=== PATIENT | male | born 1995 | race Hispanic/Latino ===

== ENCOUNTER 2017-08-15 08:58 | Emergency (ER) | payer OTHER ==
[2017-08-15] MEDS ORDERED: HYDROCODONE/CHLORPHEN 5 ML/OSYR ONE (09:40)
--- NOTE | 2017-08-15 10:07 | ER ---
Nurse's Notes [facility] Name: Steve Cintron Age: 22 yrs Sex: Male : 1995 Arrival Date: 08/15/2017 Time: 09:00 Bed 20 Private MD: Diagnosis: Other chest pain Presentation: 08/15 09:06 Presenting complaint: Patient states: chest pain that began two weeks ago. Seen at [facility], had blood work, EKG and chest XRAY and was told everything looked fine. Went back a few days later after developing a cough and was told that he was okay and given new prescriptions. Pt c/o increased pain when breathing. Transition of care: patient was not received from another setting of care. Onset of symptoms is unknown. Care prior to arrival: None. 09:06 Method Of Arrival: Ambulatory 09:06 Acuity: JEREMI 3 Historical: - Allergies: 09:09 PENICILLINS; - Home Meds: 09:09 unknown muscle relaxer [Active]; - PMHx: 09:09 None; - PSHx: 09:09 None; - Immunization history:: Adult Immunizations up to date. - Social history:: Smoking status: Patient uses tobacco products, smokes one-half pack cigarettes per day. Screenin:27 Abuse screen: Denies threats or abuse. Nutritional screening: No deficits noted. em Tuberculosis screening: No symptoms or risk factors identified. Fall Risk None identified. Assessment: 09:27 General: Appears in no apparent distress. uncomfortable, Behavior is calm, cooperative, em Reports was seen at [facility] 2 weeks ago, they did chest xray, ekg, and blood work was told every was ok, has follow up with Dr. watson 08/19/17. Pain: Complains of pain in anterior aspect of right upper chest Pain does not radiate. Pain currently is 10 out of 10 on a pain scale. Pain began 2 weeks ago. Neuro: Level of Consciousness is awake, alert, obeys commands, Oriented to person, place, time, situation. Cardiovascular: Denies diaphoresis, nausea, vomiting, Heart tones S1 S2 present Capillary refill < 3 seconds Patient's skin is warm and dry. Respiratory: Airway is patent Respiratory effort is even, unlabored, Respiratory pattern is regular, symmetrical. GI: Abdomen is flat. : No signs and/or symptoms were reported regarding the genitourinary system. EENT: No signs and/or symptoms were reported regarding the EENT system. Derm: Skin is intact, is healthy with good turgor, Skin is pink, warm \T\ dry. Musculoskeletal: Range of motion: intact in all extremities. 09:30 General: The previous assessment is accurate, call light remains within reach. . ss 10:12 Reassessment: Pt left AMA. AMA form signed. Pt verbalizes understanding importance of ss follow up care and risks involved leaving AMA. Vital Signs: 09:09 BP 139 / 76; Pulse 64; Resp 14; Temp 97.6; Pulse Ox 98% on R/A; Weight 90.72 kg; Height ss 5 ft. 10 in. (177.80 cm); Pain 10/10; 09:27 BP 128 / 78; Pulse 78; Resp 18; Pulse Ox 97% on R/A; Pain 10/10; em 09:09 Body Mass Index 28.70 (90.72 kg, 177.80 cm) ED Course: 09:00 Patient arrived in ED. tw3 09:08 Triage completed. ss 09:09 Kirstin Valverde NP is PHCP. rh1 09:09 Luigi Mathew MD is Attending Physician. rh1 09:09 Arm band placed on right wrist. ss 09:27 Patient has correct armband on for positive identification. Bed in low position. Call em light in reach. Side rails up X2. airport engineer on. Pulse ox on. 09:27 No provider procedures requiring assistance completed. Patient did not have IV access em during this emergency room visit. Patient maintains SpO2 saturation greater than 95% on room air. 09:36 Dennis Jean Baptiste LVN is Primary Nurse. em 09:48 X-ray completed. Patient tolerated procedure well. sw 09:49 Chest Pa And Lat (2 Views) XRAY In Process Unspecified. EDMS Administered Medications: 10:21 Not Given (Patient Refused): Tussionex Pennkinetic ER 5 ml PO once em Outcome: 10:28 Patient left the ED. ss 10:30 AMA AMA form signed em 10:30 Condition: good 10:30 Instructed on follow up and referral plans. Signatures: Dispatcher [employer] EDDennis Weldon LVN LVN Daly Hankins, RN RN ss Mina, Gilma sw Abram, Kirstin, APARTMENT RENTAL CLERK APARTMENT RENTAL CLERK 1 Rima Fang 3
--- NOTE | 2017-08-15 10:07 | EDPHYS ---
Physician Documentation [facility] Name: Steve Cintron Age: 22 yrs Sex: Male : 1995 Arrival Date: 08/15/2017 Time: 09:00 Bed 20 Private MD: ED Physician Luigi Mathew HPI: 08/15 09:13 This 22 yrs old Male presents to ER via Ambulatory with complaints of Chest rh1 Pain. 09:13 The patient or guardian reports chest pain that is located primarily in the right rh1 clavicle, anterior aspect of right upper chest and right breast. The pain does not radiate. Associated signs and symptoms: Pertinent positives: cough, shortness of breath, Pertinent negatives: abdominal pain, diaphoresis, dizziness, lower extremity pain, lower extremity swelling, lightheadedness, nausea, palpitations, syncope, vomiting. The chest pain is described as tightness. Duration: The patient or guardian reports a single episode, constant. Modifying factors: The symptoms are alleviated by rest, the symptoms are aggravated by cough, deep breath, movement, palpation of area, twisting torso. Severity of pain: At its worst the pain was moderate in the emergency department the pain is unchanged. The patient has not experienced similar symptoms in the past. The patient has been recently seen by a physician: to [facility] 2 weeks ago, had EKG xray "and everything was ok" -- seen again in [facility] approx. 1 week ago "and they did all that stuff again and it was normal". Pt. reports right sided chest pain, described as "tight" feeling that is worse with movement, breathing, coughing. Reports initially pain was intermittent, for the past 1 week has been constant, with runny nose, congestion, that makes it difficult to breath intermittently. Denies any fever/chills, vomiting, diaphoresis, syncope.. Historical: - Allergies: 09:09 PENICILLINS; ss - Home Meds: : unknown muscle relaxer [Active]; ss - PMHx: 09:09 None; ss - PSHx: 09:09 None; ss - Immunization history:: Adult Immunizations up to date. - Social history:: Smoking status: Patient uses tobacco products, smokes one-half pack cigarettes per day. ROS: 09:13 Constitutional: Negative for fever, chills rh1 09:13 ENT: Positive for rhinorrhea, sinus congestion, Negative for sore throat, difficulty swallowing, difficulty handling secretions, hoarseness. 09:13 Cardiovascular: Positive for chest pain, with cough, with movement, Negative for edema, palpitations. 09:13 Respiratory: Positive for cough, with no reported sputum, shortness of breath, Negative for dyspnea on exertion, hemoptysis, wheezing. 09:13 Abdomen/GI: Negative for abdominal pain, nausea, vomiting, and diarrhea. 09:13 Back: Positive for radiated pain, right shoulder, with increased pain at right anterior chest, Negative for decreased range of motion, pain at rest, pain with movement. 09:13 MS/extremity: Negative for decreased range of motion, pain, paresthesias. 09:13 Skin: Negative for diaphoresis, rash. 09:13 Neuro: Negative for altered mental status, dizziness, headache, numbness, syncope, near syncope, tingling, weakness. Exam: 09:13 Constitutional: This is a well developed, well nourished patient who is awake, alert, rh1 and in no acute distress. Head/Face: Normocephalic, atraumatic. 09:13 Neck: Trachea midline, and no cervical lymphadenopathy. Supple, full range of motion without nuchal rigidity. No Meningismus. 09:13 Cardiovascular: Regular rate and rhythm with a normal S1 and S2. No gallops, murmurs, or rubs. No JVD. No pulse deficits. Respiratory: Lungs have equal breath sounds bilaterally, clear to auscultation. No rales, rhonchi or wheezes noted. No increased work of breathing. Abdomen/GI: Soft, non-tender, with normal bowel sounds. No distension. No guarding or rebound. No evidence of tenderness throughout. Back: No spinal tenderness. No costovertebral tenderness. Full range of motion. 09:13 Skin: Warm, dry with normal turgor. Normal color with no rashes, no lesions, and no evidence of cellulitis. MS/ Extremity: Pulses equal, no cyanosis. Neurovascular intact. Full, normal range of motion. 09:13 ENT: External ear(s): are unremarkable, Ear canal(s): are normal, clear, no cerumen impaction, no erythema, no foreign body, no purulent discharge, no swelling, TM's: are normal, no evidence of bulging, no dullness, no erythema, no fluid levels, no hemotympanum, no rupture, normal bony landmarks, Nose: Nasal mucosa: edematous, erythematous, moist, Turbinates: are swollen bilaterally, nasal drainage, that is minimal, and is seen coming from both nares, that is clear, Mouth: is normal, no lip abnormalities, no mucosal abnormalities, Posterior pharynx: is normal, airway is patent, no erythema, no exudate, no peritonsilar mass, no pooling of secretions, no swelling, normal tonsil apperance, normal sized tonsils, normal uvula appearance, normal uvula size. 09:13 Chest/axilla: Inspection: normal, no abrasion, no assymetry, no deformity, no ecchymosis, no evidence of flail chest, no paradoxical chest wall movement, no rash, Palpation: crepitus, is not appreciated, tenderness, that is moderate, of the right clavicle, anterior aspect of right upper chest and right breast, that totally reproduces the patient's complaints. 09:13 Back: Exam negative for ecchymosis vertebral tenderness. 09:13 Neuro: Orientation: is normal, to person, place \\T\\ time. Mentation: is normal, lucid, able to follow commands, Motor: is normal, moves all fours, strength is 5/5 in all extremities, Sensation: is normal, no obvious gross deficits, numbness, is not appreciated, tingling, is not appreciated, Gait: is steady, at a normal pace, without difficulty. Vital Signs: 09:09 BP 139 / 76; Pulse 64; Resp 14; Temp 97.6; Pulse Ox 98% on R/A; Weight 90.72 kg; Height ss 5 ft. 10 in. (177.80 cm); Pain 10/10; 09:27 BP 128 / 78; Pulse 78; Resp 18; Pulse Ox 97% on R/A; Pain 10/10; em 09:09 Body Mass Index 28.70 (90.72 kg, 177.80 cm) ss MDM: 09:13 Patient medically screened. rh1 10:04 Refusal of service: The patient/guardian displays adequate decision making capability rh1 and despite a detailed discussion of alternatives, benefits, risks, and consequences refuses: all lab tests, all X-rays. ED course: Pt. reports he has things to do at 1100, and does not want to stay for evaluation - discussed with pt. inability to rule out emergent causes of chest pain without further evaluation, pt. and mother at bedside verbalize understanding -- will sign ama form, and discussed to return to ER with any continued pain, worsening symptoms, pt. verbalized understanding. 10:04 Data reviewed: vital signs, nurses notes. Data interpreted: Pulse oximetry: on room air rh1 is 97 %. Interpretation: normal. Counseling: I had a detailed discussion with the patient and/or guardian regarding: the need for outpatient follow up, a family practitioner. 08/15 09:35 Order name: Chest Pa And Lat (2 Views) XRAY rh1 Administered Medications: 10:21 Not Given (Patient Refused): Tussionex Pennkinetic ER 5 ml PO once em Disposition: 13:55 Co-signature as Attending Physician, Luigi Mathew MD I agree with the assessment and kdr plan of care. Disposition: 08/15/17 10:06 Patient has left against medical advice. Impression: Other chest pain. - Patients states they are going to Home. - Condition is Undetermined. - Discharge Instructions: Nonspecific Chest Pain. Follow up: Private Physician; When: 1 - 2 days; Reason: Recheck today's complaints, Continuance of care, Re-evaluation by your physician. Follow up: Emergency Department; When: As needed; Reason: Fever > 102 F, If symptoms return, Trouble breathing, Worsening of condition. - Problem is new. - Symptoms are unchanged. Signatures: Dispatcher [employer] Luigi Winters MD MD kdr Smirch, Shelby, RN RN Kirstin Brewer NP DRUM REEL CUTTER rh1 Dennis Jean Baptiste CHIEF WARDEN em Corrections: (The following items were deleted from the chart) 10: 09:35 EKG - Nurse/Tech ordered. rh1 em 10: 09:35 IV Saline Lock ordered. rh1 em
--- NOTE | 2017-08-15 10:29 | RAD REPORT ---
EXAM DESCRIPTION: RAD - Chest Pa And Lat (2 Views) - 08/15/2017 9:50 am CLINICAL HISTORY: Persistent chest pain COMPARISON: July 2013 TECHNIQUE: PA and lateral views of the chest were obtained. FINDINGS: The lungs are clear of failure, infiltrate or mass. No mediastinal or hilar abnormality se en. Trachea is midline. Lung markings are similar to comparison. Heart size is normal and central v asculature is within normal limits. No pleural effusion or pneumothorax seen. No acute bony finding noted. No aortic abnormality. IMPRESSION: No acute cardiopulmonary process. No significant change from comparison.
[2017-08-15 10:33] VITALS: TEMP 97.6
[2017-08-15 10:34] VITALS: BP 128/78; O2SAT 97
== END 2017-08-15 10:28 | disposition left against medical advice (07) ==
LOC: ER 08:58
DX: R07.89 Other chest pain (principal); F17.210 Nicotine dependence, cigarettes, uncomplicated; Z88.0 Allergy status to penicillin
CPT/HCPCS: 71046; 99284

== ENCOUNTER 2020-09-28 15:05 | Emergency (ER) | payer SELFPAY ==
--- OUTSIDE RECORDS SUMMARY | 2020-09-28 15:09 | XMS REPORT | Continuity of Care Document ---
:1995 Author Organization [facility] t Address [address] [place] [address] Care Team Providers Name Role Phone Unavailable Unavailable Unavailable Payers Payer Name Policy Type Policy Number Effective Date Expiration Date S ource Problems This patient has no known problems. Allergies, Adverse Reactions, Alerts Allergy Allergy Status Severity Reaction(s) Onset Inactive Treating Comm ents Source Name Type Date Date Clinician No Known DA Active U 0 [facility] Allergie 05-19 [place] s 00:00: d 00 [facility] Penicill DA Active MO 0 [facility] ins 05-19 Clear 00:00: Duarte 00 [facility] Medications This patient has no known medications. Procedures This patient has no known procedures. Results Test Description Test Time Test Comments Results Result [facility] e Comments - CT ABD PELVIS 2018-05-19 FAX: W/O CONT 16:49:00 Dilia Becerril MD [phone] Crane: EM St: REG Name: CELSO COBOS [facility] : 1995 Age/S: 23/M [address] [facility] Unit: [id number] Loc: E.DG [place], [place]: [place] [id number] Acct: [id number] Dis Date: Status: REG ER PHONE #: [phone] Exam Date: 05/19/2018 1637 FAX #: [phone] Reason: MODERATE BILAT HYDRONEPHROSIS ON U/S EXAMS: CPT CODE: [id number] CT ABD PELVIS W/O CONT 95270 CT ABDOMEN PELVIS WITHOUT CONTRAST HISTORY: MODERATE BILAT HYDRONEPHROSIS ON U/S COMPARISON: None. TECHNIQUE: Axial images of the abdomen and pelvis were obtained without intravenous or oral contrast. Coronal and sagittal reformats were provided. One or more of the following dose reduction techniques were used: Automated exposure control, adjustment of the mA and/or kV according to patient size, and/or utilization of iterative reconstruction technique. FINDINGS: Lower thorax: Unremarkable. Hepatobiliary: Unremarkable. No biliary ductal dilatation. Gallbladder: The gallbladder is contracted. Spleen: Unremarkable except for a few punctate calcified granulomas. Pancreas: Unremarkable. Adrenals: Unremarkable. Kidneys/ureters: Bilateral renal pelviectasis is noted. No renal or ureteral stone is identified. Bowel: The small bowel loops are nondilated. The appendix is normal. Pelvic organs/bladder: There is mild thickening of the urinary bladder wall. This is accentuated by underdistention. The prostate gland is normal in size. Vessels: The abdominal aorta is normal in caliber. Lymph nodes: No lymphadenopathy. Peritoneum/Retroperit oneum: No free air or free fluid is seen. Bones/soft tissues: No aggressive osseous lesion is identified. PAGE 1 Signed Report (CONTINUED) FAX: Dilia Becerril MD [phone] Crane: St: REG Name: COBOSCELSO [facility] : 1995 Age/S: 23/M [address] [facility] Unit: [id number] Loc: E.ERS [place], [place]: [place] [address] Acct: [id number] Dis Date: Status: REG ER PHONE #: [phone] Exam Date: 05/19/2018 1637 FAX #: [phone] Reason: MODERATE BILAT HYDRONEPHROSIS ON U/S EXAMS: CPT CODE: [id number] CT ABD PELVIS W/O CONT 03090 <Continued> IMPRESSION: 1. Mild renal pelviectasis. 2. The urinary bladder wall is mildly thickened however this is accentuated by underdistention. LOCATION: R16 at 7679 Reported and signed by: Stephan Lee M.D. CC: Dilia Becerril MD Technologist: NACHO Landryrd Dt/Tm: 05/19/2018 (9363) [email or web address] Orig Print D/T: S: 05/19/2018 (0552 PAGE 2 Signed Report - US ABDOMEN LTD 2018-05-19 FAX: 16:09:00 Dilia Becerril MD [phone] Crane: St: REG Name: CELSO COBOS [facility] : 1995 Age/S: 23/M [address] [facility] Unit #: [id number] Loc: E.DG [place], [place] [address] Acct: [id number] Dis Date: Status: REG ER PHONE #: [phone] Exam Date: 05/19/2018 1604 FAX #: [phone] Reason: ELEVATED LFT'S EXAMS: CPT CODE: [id number] US ABDOMEN LTD 54823 REASON FOR EXAM: Elevated liver function tests. Abdominal sonogram, limited. B-mode/Goldberg scale imaging with color Doppler perfusion imaging was performed. The aorta has normal diameter. IVC intact with normal spectral analysis waveform on Doppler. The pancreas appears to be limited due to gas shadowing. Coarsened echogenicity pattern in the liver likely fatty liver changes. Normal size at CM. No focal lesions are seen nor cysts. Antegrade portal vein flow seen on color Doppler. Common bile duct 3.6 mm, normal. The gallbladder is severely contracted but no shadowing stones are seen nor adjacent fluid. Negative Beckham's sign. Right kidney well-perfused, 11.7 cm in length. Extrarenal pelvis likely. No caliectasis centrally. The left kidney is 12.2 cm in length also with central fluid more involving the calyces. Perfusion intact. Brief imaging of the bladder shows smooth hebert and normally filled structure. IMPRESSION: Central fluid and caliectasis in the left kidney suggests hydronephrosis. Borderline central fluid in the right kidney versus extrarenal pelvis. Correlate for renal function. Bladder intact. Contracted, thickened gallbladder without gallstones. No ascites found. Fatty liver changes. Location: U19 PAGE 1 Signed Report (CONTINUED) FAX: Dilia Becerril MD [phone] Crane: St: REG Name: CELSO COBOS TYSON [facility] : 1995 Age/S: 23/M [address] [facility] Unit #: [id number] Loc: E.[place], [place] [id number] Acct: [id number] Dis Date: Status: REG ER PHONE #: [phone] Exam Date: 05/19/2018 1604 FAX #: [phone] Reason: ELEVATED LFT'S EXAMS: CPT CODE: [id number] [facility] [address] <Continued> at 1609 Reported and signed by: Felix Isaac M.D. CC: Dilia Becerril MD Technologist: SUSIE OLIVERA [facility] Date/Time/By: 05/19/2018 (3377) : By: [facility] PAGE 2 Signed Report FAX: Dilia Becerril MD [phone] Crane: St: REG Name: CELSO COBOS [facility] : 1995 Age/S: 23/M [address] [facility] Unit #: [id number] Loc: [place], [place]: [place] [address] Acct: [id number] Dis Date: Status: REG ER PHONE #: [phone] Exam Date: 05/19/2018 1604 FAX #: [phone] Reason: ELEVATED LFT'S EXAMS: CPT CODE: [id number] US ABDOMEN LTD 13853 <Continued> Orig Print D/T: S: 05/19/2018 (1312) PAGE 3 Signed Report URINALYSIS COMPLETE 2018-05-19 15:29:00 Test Item Value Reference Range Interpretation Comme nts UA COLOR (test code = COLU) YELLOW UA APPEARANCE (test code = APPU) CLEAR UA GLUCOSE DIPSTICK (test code = DGLUU) NORMAL mg/dl NORMAL UA BILIRUBIN DIPSTICK (test code = BILU) NEGATIVE mg/dL NEGATIVE UA KETONE DIPSTICK (test code = KETU) NEGATIVE mg/dl NEGATIVE UA SPECIFIC GRAVITY (test code = SGU) 1.020 1.000-1.030 UA BLOOD DIPSTICK (test code = FANNY) 25 Marvel/micL Marvel/micL NEGATIVE A UA PH DIPSTICK (test code = KATY) 6.0 5.0-9.0 UA PROTEIN DIPSTICK (test code = PROU) 30 mg/dl NEGATIVE UA UROBILINIOGEN DIPSTICK (test code = URO) NORMAL mg/dl NORMAL UA NITRITE DIPSTICK (test code = PRABHAKAR) NEGATIVE NEGATIVE UA LEUKOCYTE ESTERASE DIPSTICK (test code = NEGATIVE Jaime/micL NEGAT DELFINO LEUU) UA WBC (test code = WBCU) 0-2 WBC/HPF NONE UA RBC (test code = RBCU) 1-3 RBC/HPF 0-3 UA EPITHELIAL CELLS (test code = EPIU) 0-3 EPI/HPF 0-3 UA BACTERIA (test code = BACU) TRACE NONE Specimen comments: Clean CatchURINALYSIS [id number] 15:28:00 Test Item Value Reference Range Interpretation Comments UA COLOR (test code = COLU) UA APPEARANCE (test code = APPU) UA GLUCOSE DIPSTICK (test NORMAL mg/dl NORMAL code = DGLUU) UA BILIRUBIN DIPSTICK NEGATIVE mg/dL NEGATIVE (test code = BILU) UA KETONE DIPSTICK (test NEGATIVE mg/dl NEGATIVE code = KETU) UA SPECIFIC GRAVITY (test 1.020 1.000-1.030 code = SGU) UA BLOOD DIPSTICK (test 25 Marvel/micL Marvel/micL NEGATIVE A code = FANNY) UA PH DIPSTICK (test code 6.0 5.0-9.0 = KATY) UA PROTEIN DIPSTICK (test 30 mg/dl NEGATIVE code = PROU) UA UROBILINIOGEN DIPSTICK NORMAL mg/dl NORMAL (test code = URO) UA NITRITE DIPSTICK (test NEGATIVE NEGATIVE code = PRABHAKAR) UA LEUKOCYTE ESTERASE NEGATIVE Jaime/micL NEGATIVE DIPSTICK (test code = LEUU) UA WBC (test code = WBCU) WBC/HPF NONE UA RBC (test code = RBCU) RBC/HPF 0-3 UA EPITHELIAL CELLS (test EPI/HPF 0-3 code = EPIU) UA BACTERIA (test code = NONE BACU) Specimen comments: Clean CatchBASIC METABOLIC [id number] 15:23:00 Test Item Value Reference Range Interpretation Comments SODIUM (test code = NA) 140 mmol/l 134.0-147.0 N POTASSIUM (test code = K) 4.0 mmol/L 3.6-5.2 N CHLORIDE (test code = CL) 102 mmol/l 98.0-107.0 N CARBON DIOXIDE (test code = CO2) 27.5 mmol/l 21.0-33.0 N ANION GAP (test code = GAP) 14.5 0-20 N GLUCOSE (test code = GLU) 120 mg/dl 70.0-110.0 H BLOOD UREA NITROGEN (test code = 13 mg/dl 7.0-18.0 N BUN) CREATININE (test code = CREAT) 0.88 mg/dL 0.60-1.30 N GFR NON BLACK (test code = 113 mL/min 110-120 N GFRNONBLACK) GFR BLACK (test code = GFRBLACK) 137 mL/min 133-145 N CALCIUM (test code = CA) 9.1 mg/dl 8.0-10.5 N HEPATIC FUNCTION PANEL [id number] 15:23:00 Test Item Value Reference Range Interpretation Comments TOTAL PROTEIN (test code = PROT) 8.1 GM/DL 6.0-8.1 N ALBUMIN (test code = ALB) 4.0 gm/dL 3.2-4.7 N BILIRUBIN TOTAL (test code = 0.4 mg/dl 0.0-1.0 N BILT) BILIRUBIN DIRECT (test code = 0.1 mg/dl 0.0-0.3 N BILD) SGOT/AST (test code = AST) 515 Units/L 15.0-37.0 HH SGPT/ALT (test code = ALT) 266 Units/L 12.0-78.0 H ALKALINE PHOSPHATASE TOTAL (test 79 Units/L 50.0-136.0 N code = ALKP) [id number] 15:23:00 Test Item Value Reference Range Interpretation Comments LIPASE (test code = LIP) 307 Units/L 65.0-230.0 H BASIC METABOLIC [id number] 15:17:00 Test Item Value Reference Range Interpretation Comments SODIUM (test code = NA) 140 mmol/l 134.0-147.0 N POTASSIUM (test code = K) 4.0 mmol/L 3.6-5.2 N CHLORIDE (test code = CL) 102 mmol/l 98.0-107.0 N CARBON DIOXIDE (test code = CO2) 27.5 mmol/l 21.0-33.0 N ANION GAP (test code = GAP) 14.5 0-20 N GLUCOSE (test code = GLU) mg/dl 70.0-110.0 BLOOD UREA NITROGEN (test code = mg/dl 7.0-18.0 BUN) CREATININE (test code = CREAT) mg/dL 0.60-1.30 GFR NON BLACK (test code = mL/min 110-120 GFRNONBLACK) GFR BLACK (test code = GFRBLACK) mL/min 133-145 CALCIUM (test code = CA) mg/dl 8.0-10.5 HEPATIC FUNCTION PANEL [id number] 15:17:00 Test Item Value Reference Range Interpretation Comments TOTAL PROTEIN (test code = PROT) gm/dL 6.4-8.2 ALBUMIN (test code = ALB) gm/dl 3.2-4.7 BILIRUBIN TOTAL (test code = BILT) mg/dl 0.0-1.0 BILIRUBIN DIRECT (test code = BILD) mg/dl 0.0-0.3 SGOT/AST (test code = AST) Units/L 15.0-37.0 SGPT/ALT (test code = ALT) Units/L 12.0-78.0 ALKALINE PHOSPHATASE TOTAL (test Units/L 50.0-136.0 code = ALKP) [id number] 15:17:00 Test Item Value Reference Range Interpretation Comments LIPASE (test code = LIP) Units/L 65.0-230.0 CBC W/O [id number] 15:09:00 Test Item Value Reference Range Interpretation Comments WHITE BLOOD CELL (test code = WBC) 10.4 K/mm3 4.5-11.0 N RED BLOOD CELL (test code = RBC) 4.86 M/mm3 4.40-5.90 N HEMOGLOBIN (test code = HGB) 14.8 gm/dL 13.0-17.0 N HEMATOCRIT (test code = HCT) 43.5 % 36.0-48.0 N MEAN CELL VOLUME (test code = MCV) 89.5 UM3 80.0-94.0 N MEAN CELL HGB (test code = MCH) 30.5 UUG 25.5-32.5 N MEAN CELL HGB CONCETRATION (test 34.0 gm/dL 29.0-35.5 N code = MCHC) RED CELL DISTRIBUTION WIDTH (test 12.5 % 11.5-15.0 N code = RDW) PLATELET COUNT (test code = PLT) 363 K/mm3 150-400 N MEAN PLATELET VOLUME (test code = 8.3 fl 7.4-10.4 N MPV) - XR CHEST 1 [id number] 14:56:00 FAX: Dilia Becerril MD [phone] Crane: St: REG Name: CELSO COBOS [facility] : 1995 Age/S: 23/M [address] [facility] [employer] Unit#: [id number] Loc: [place], [place]: [place] [id number] Acct: [id number] Dis Date: Status: REG ER PHONE #: [phone] Exam Date: 05/19/2018 1435 FAX #: [phone] Reason: Abdominal Pain EXAMS: CPT CODE: [id number] XR CHEST 1 V 06247 REASON FOR EXAM: Flu like symptoms. COMPARISON: None. Chest, portable single frontal view. The lungs are well-inflated and clear. Heart size is normal. No effusion or pneumothorax can be seen. Osseous structures appear to be intact. IMPRESSION: No acute cardiopulmonary disease. Location: [facility] at 1456 Reported and signed by: Felix Isaac M.D. CC: Dilia Becerril MD Technologist: GLADYS MOTLEY Trnscrd Date/Time/By: 05/19/2018 (8783) : By: [facility] PAGE 1 Signed Report FAX: Dilia Becerril MD [phone] Crane: St: REG Name: CELSO COBOS [facility] : 1995 Age/S: 23/M [address] [facility] Unit #: [id number] Loc: [place], [place]: [place] [address] Acct: [id number] Dis Date: Status: REGER PHONE #: [phone] Exam Date: 05/19/2018 1435 FAX #: [phone] Reason: Abdominal Pain EXAMS: CPT CODE: [id number] XR CHEST 1 V 74748 <Continued> Orig Print D/T: S: 05/19/2018 (1476) PAGE 2 Signed Report
--- NOTE | 2020-09-28 16:26 | ER ---
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 ca1 Coronavirus screen: Client denies travel out of the [place] in the last 14 days. At this time, the client does not indicate any symptoms associated with coronavirus-19. Ebola Screen: Patient negative for fever greater than or equal to 101.5 degrees Fahrenheit, and additional compatible Ebola Virus Disease symptoms Patient denies exposure to infectious person. Patient denies travel to an Ebola-affected area in the 21 days before illness onset. No symptoms or risks identified at this time. Initial Sepsis Screen: Does the patient meet any 2 criteria? No. Patient's initial sepsis screen is negative. Does the patient have a suspected source of infection? No. Patient's initial sepsis screen is negative. Risk Assessment: Do you want to hurt yourself or someone else? Patient reports no desire to harm self or others. Onset of symptoms was September 28, 2020. 15:23 Method Of Arrival: Wheelchair ca1 15:23 Acuity: JEREMI 4 ca1 Historical: - Allergies: 15:25 PENICILLINS; ca1 - Home Meds: 15:25 None [Active]; ca1 - PMHx: 15:25 None; ca1 - PSHx: 15:25 None; ca1 - Immunization history:: Client reports having NOT received the Covid vaccine. Flu vaccine is not up to date. - Social history:: Smoking status: Patient reports the use of cigarette tobacco products, smokes one-half pack cigarettes per day. Screenin:47 Abuse screen: Denies threats or abuse. Nutritional screening: No deficits noted. ll1 Tuberculosis screening: No symptoms or risk factors identified. Fall Risk Fall in past 12 months (25 points). Ambulatory Aid- Crutches/Cane/Walker (15 pts). Gait- Impaired (20 pts.). Total De La Cruz Fall Scale indicates High Risk Score (45 or more points). Fall prevention measures have been instituted. Side Rails Up X 2 Placed Close to Nursing Station Frequent Obs/Assessments Occuring Family Present and informed to notify staff if the need to leave the bedside As available patient and family educated on Fall Prevention Program and Strategies. Assessment: 15:46 General: Appears uncomfortable, Behavior is calm, cooperative, appropriate for age. ll1 Pain:. 15:46 Pain: Complains of pain in R ankle Quality of pain is described as aching, Aggravated ll1 by increased activity. Musculoskeletal: Circulation, motion, and sensation intact. Capillary refill < 3 seconds, Range of motion: intact in all extremities, Tenderness present in R ankle Reports pain in R ankle. Injury Description: strain/sprain. 16:55 Musculoskeletal: Circulation, motion, and sensation intact. Capillary refill < 3 ll1 seconds, Range of motion: intact in all extremities. Vital Signs: 15:23 BP 123 / 74; Pulse 78; Resp 16 S; Temp 98.6(TE); Pulse Ox 99% on R/A; Weight 90.72 kg ca1 (R); Height 5 ft. 10 in. (177.80 cm) (R); Pain 9/10; 15:23 Body Mass Index 28.70 (90.72 kg, 177.80 cm) ca1 ED Course: 15:08 Patient arrived in ED. ds1 15:24 Triage completed. ca1 15:25 Arm band placed on right wrist. ca1 15:44 Patient placed in an exam room, on a stretcher. ll1 15:48 Patient has correct armband on for positive identification. Bed in low position. Call ll1 light in reach. Side rails up X 1. Cardiac monitoring not applicable on this patient. 15:49 John Salinas PA is PHCP. jr8 15:49 Michael Paul MD is Attending Physician. jr8 16:08 Ankle Right 3 View XRAY In Process Unspecified. EDMS 16:22 Isaac wrap to right ankle. Crutch training done. dh4 16:26 Naren Polk MD is Referral Physician. jr8 16:42 Sami Deras, JESSICA is Primary Nurse. ll1 16:55 No provider procedures requiring assistance completed. Patient did not have IV access ll1 during this emergency room visit. Administered Medications: 16:50 Drug: [place] (HYDROcodone-acetaminophen) 10 mg-325 mg 1 tabs Route: PO; ll1 16:55 Follow up: Response: No adverse reaction ll1 16:50 Drug: TORadol (ketorolac) 30 mg Route: IM; Site: left deltoid; ll1 16:55 Follow up: Response: No adverse reaction ll1 Outcome: 16:26 Discharge ordered by . edgardo 16:55 Discharged to home via wheelchair. ll1 16:55 Condition: stable 16:55 Discharge instructions given to patient, Instructed on discharge instructions, follow up and referral plans. medication usage, crutch walking, Demonstrated understanding of instructions, follow-up care, medications, crutch walking, Prescriptions given X 1. 16:56 Patient left the ED. ll1 Signatures: Dispatcher [employer] EDWA MartinoLakesha ernandez ds1 John Salinas PA PA jr8 Tania Duron RN RN [facility] Raul Saenz [facility] Sami Deras RN RN ll1 Corrections: (The following items were deleted from the chart) 15:47 15:46 General: Appears uncomfortable, Behavior is calm, cooperative, appropriate for ll1 age, ll1
--- NOTE | 2020-09-28 16:26 | EDPHYS ---
Physician Documentation [facility] Name: Steve Cintron Age: 25 yrs Sex: Male : 1995 Arrival Date: 09/28/2020 Time: 15:08 Bed 12 Private MD: ED Physician Michael Paul HPI: 09/28 16:23 This 25 yrs old Male presents to ER via Wheelchair with complaints of Ankle jr8 Injury. 16:23 The patient presents with decreased range of motion, pain, that is acute, swelling, jr8 tenderness. The complaints affect the right ankle. Onset: The symptoms/episode began/occurred acutely, today. Context: The problem was sustained outdoors, resulted from the patient falling, slipped of back of truck and twisted right ankle. Associated signs and symptoms: The patient has no apparent associated signs or symptoms. Modifying factors: The symptoms are alleviated by nothing, the symptoms are aggravated by movement. Severity of symptoms: At their worst the symptoms were moderate, in the emergency department the symptoms are unchanged. The patient has not experienced similar symptoms in the past. The patient has not recently seen a physician. Historical: - Allergies: 15:25 PENICILLINS; ca1 - Home Meds: 15:25 None [Active]; ca1 - PMHx: 15:25 None; ca1 - PSHx: 15:25 None; ca1 - Immunization history:: Client reports having NOT received the Covid vaccine. Flu vaccine is not up to date. - Social history:: Smoking status: Patient reports the use of cigarette tobacco products, smokes one-half pack cigarettes per day. ROS: 16:23 Eyes: Negative for injury, pain, redness, and discharge, ENT: Negative for injury, jr8 pain, and discharge, Neck: Negative for injury, pain, and swelling, Cardiovascular: Negative for chest pain, palpitations, and edema, Respiratory: Negative for shortness of breath, cough, wheezing, and pleuritic chest pain, Abdomen/GI: Negative for abdominal pain, nausea, vomiting, diarrhea, and constipation, Back: Negative for injury and pain, Skin: Negative for injury, rash, and discoloration, Neuro: Negative for headache, weakness, numbness, tingling, and seizure. 16:23 MS/extremity: Positive for decreased range of motion, pain, swelling, tenderness, of the right lateral and dorsal ankle. Exam: 16:23 Constitutional: This is a well developed, well nourished patient who is awake, alert, jr8 and in no acute distress. Vital Signs: 15:23 BP 123 / 74; Pulse 78; Resp 16 S; Temp 98.6(TE); Pulse Ox 99% on R/A; Weight 90.72 kg ca1 (R); Height 5 ft. 10 in. (177.80 cm) (R); Pain 9/10; 15:23 Body Mass Index 28.70 (90.72 kg, 177.80 cm) ca1 MDM: 15:49 Patient medically screened. jr8 16:13 Data reviewed: vital signs, nurses notes, radiologic studies, plain films. Data jr8 interpreted: Pulse oximetry: on room air is 99 %. Interpretation: normal. Counseling: I had a detailed discussion with the patient and/or guardian regarding: the historical points, exam findings, and any diagnostic results supporting the discharge/admit diagnosis, radiology results, the need for outpatient follow up, a orthopedic surgeon, to return to the emergency department if symptoms worsen or persist or if there are any questions or concerns that arise at home. 09/28 15:25 Order name: Ankle Right 3 View XRAY; Complete Time: 16:30 ca1 09/28 16:13 Order name: Isaac wrap-joint; Complete Time: 16:23 jr8 09/28 16:13 Order name: Crutches; Complete Time: 16:23 jr8 Administered Medications: 16:50 Drug: [place] (HYDROcodone-acetaminophen) 10 mg-325 mg 1 tabs Route: PO; ll1 16:55 Follow up: Response: No adverse reaction ll1 16:50 Drug: TORadol (ketorolac) 30 mg Route: IM; Site: left deltoid; ll1 16:55 Follow up: Response: No adverse reaction ll1 Disposition: 09/28/20 16:26 Discharged to Home. Impression: Sprain of ankle. - Condition is Stable. - Discharge Instructions: Ankle Sprain. - Prescriptions for Ibuprofen 800 mg Oral Tablet - take 1 tablet by ORAL route every 12 hours As needed take with food; 20 tablet. - Medication Reconciliation Form, Thank You Letter, Antibiotic Education, Prescription Opioid Use form. - Follow up: Naren Polk MD; When: 1 week; Reason: If symptoms return, Recheck today's complaints, Continuance of care, Re-evaluation by your physician. - Problem is new. - Symptoms have improved. Addendum: 09/30/2020 07:15 Co-signature as Attending Physician, Micheal Paul MD I agree with the assessment and c cornelius plan of care. Signatures: Dispatcher [employer] EDMichael Gonzalez MD MD cha Roszak, Josh, PA PA jr8 Tania Duron RN RN [facility] Sami Deras RN RN ll1 Corrections: (The following items were deleted from the chart) 09/28 16:56 16:26 09/28/2020 16:26 Discharged to Home. Impression: Sprain of ankle. Condition is ll1 Stable. Forms are Medication Reconciliation Form, Thank You Letter, Antibiotic Education, Prescription Opioid Use. Follow up: Naren Polk; When: 1 week; Reason: If symptoms return, Recheck today's complaints, Continuance of care, Re-evaluation by your physician. Problem is new. Symptoms have improved. jr8
--- NOTE | 2020-09-28 16:29 | RAD REPORT ---
EXAM DESCRIPTION: RAD - Ankle Right 3 View - 09/28/2020 4:08 pm CLINICAL HISTORY: Right ankle pain FINDINGS: No fracture or dislocation is seen. Soft tissue swelling . A spur extends off the distal fibular diaphysis
[2020-09-28 17:02] VITALS: BP 123/74; TEMP 98.6; O2SAT 99
[2020-09-28] MEDS ORDERED: HYDROCODONE/APAP 10/325 TAB ONE (17:04)
[2020-09-28] MEDS ORDERED: KETOROLAC 30 MG/ML INJ ONE (17:05)
== END 2020-09-28 16:56 | disposition home or self-care (01) ==
LOC: ER 15:05
DX: S93.401A Sprain of unspecified ligament of right ankle, initial encounter (principal); F17.210 Nicotine dependence, cigarettes, uncomplicated; V58.4XXA Person boarding or alighting a pick-up truck or van injured in noncollision transport accident, initial encounter
CPT/HCPCS: 96372; 99284

== ENCOUNTER 2024-03-08 14:09 | Emergency (ER) | payer SELFPAY ==
--- OUTSIDE RECORDS SUMMARY | 2024-03-08 14:13 | XMS REPORT | Continuity of Care Document ---
Author Name Unknown Address [address] [facility] [address] [place] [address] [facility] Address [address] [facility] [address] [place] [address] Care Team Providers Care Logistics Loss Prevention Manager Name Role Phone DAVE ELAM JR Primary Care Physician Silvia post Doctor Unassigned, [place] Attending Clinician U ZAKIYA Mathews Attending Clinician Unavailab Zakiya Fonseca MD Attending Clinician [phone] ZAKIYA FLORES Admitting Clinician Unavailab marrero Payers Payer Name Policy Type Policy Number Effective Date Expirati on Date Source Allergies, Adverse Reactions, Alerts Allergy Name Allergy Type Status Severity Reaction(s) Onset Date Inactive Date Treating Clinician Comments Source Penicill ins DA Active [place] 05-19 00:00: 00 [facility] No Known Allergie s DA Active U 05-19 00:00: 00 [facility] PENICILL IN DRUG INGREDI Active Med Rash 2017- 605 00:00: 00 [facility] ity [facility] Penicill in Propensi ty to adverse reaction s Active Rash 10-05 00:00: 00 [facility] Social History Social Habit Start Date Stop Date Quantity Comments Source History of tobacco use 2013-10-05 00:00:00 Cigarette Smoker [facility] Alcohol intake 2022-09-19 00:00:00 2022-09-19 00:00:00 Current drinker of alcohol (finding) [facility] Cigarettes smoked current (pack per day) - Reported 2017-10-05 00:00:00 2017-10-05 00:00:00 [facility] Tobacco use and exposure 2017-10-05 00:00:00 2017-10-05 00:00:00 User of smokeless tobacco [facility] Alcohol Comment 2017-10-05 00:00:00 2017-10-05 00:00:00 Occasionally [facility] Sex Assigned At 1995 00:00:00 1995 00:00:00 [facility] Smoking Status Start Date Stop Date Source Smokes tobacco daily 2017-10-05 00:00:00 [facility] Medications Ordered Medication Name Filled Medication Name Start Date Stop Date Current Medication? Ordering Clinician Indication Dosage Frequency Signature (SIG) Comments Components Source iopamidol (ISOVUE 370-500 mL) injection 1 mL 09-19 14:30: 00 09-19 14:30 :00 No [id number] 1mL 1 mL, Intravenou s, ONCE, 1 dose, On 09/19/22 at 0930, Routine [facility] traMADOL 50 mg tablet 11-18 00:00: 00 Yes 50mg Take 1 tablet by mouth every 8 (eight) hours as needed for Pain (scale 7-10). [facility] diclofenac 3 % gel 10-18 00:00: 00 Yes Apply to area(s) 2 (two) times daily. [facility] cyclobenzap rine 10 mg tablet 09-15 00:00: [address] [facility] Vital Signs Vital Name Observation Time Observation Value Comments S ource Systolic blood pressure 2022-09-19 14:00:00 139 mm[Hg] [facility] Diastolic blood pressure 2022-09-19 14:00:00 111 mm[Hg] [facility] Heart rate 2022-09-19 14:00:00 69 /min [facility] Oxygen saturation in Arterial blood by Pulse oximetry 2022-09-19 14:00:00 100 /min [facility] Procedures Procedure Date / Time Performed Performing Clinician Source AUTHORIZATION FOR RELEASE OF PHI 2022-09-23 05:01:00 Doctor Unassigned, [place] [facility] CT TRAUMA HEAD WO CONTRAST 2022-09-19 13:45:58 Zakiya Flores [facility] CT TRAUMA THORAX W CONTRAST 2022-09-19 13:41:13 Zakiya Flores [facility] CT TRAUMA ABDOMEN PELVIS W CONTRAST 2022-09-19 13:37:42 Zakiya Flores [facility] Encounters Start Date/Time End Date/Time Encounter Type Admission Type Attending [facility] Care Facility Care Department Encounter ID Source 2022-09-23 00:00:00 2022-09-23 00:00:00 Orders Only Doctor Unassigned, [place] [facility] [id number] [facility] 2022-09-19 06:58:00 2022-09-19 10:43:00 Emergency X [facility] ERT [id number] [facility] 2022-09-19 06:58:00 2022-09-19 10:43:00 Emergency Zakiya Flores [facility] [id number] [facility] Results Test Description Test Time Test Comments Results Resul t Comments Source - CT ABD PELVIS W/O CONT 2018-05-19 16:49:00 FAX: Dilia Becerril MD [phone] [place]: St: REG Name: CELSO COBOS [facility] : 1995 Age/S: 23/M [address] [facility] [address] Unit: [id number] Loc: [place], [place]: [place] [id number] Acct: [id number] Dis Date: Status: REG ER PHONE #: [phone] Exam Date: 05/19/2018 1637 FAX #: [phone] Reason: MODERATE BILAT HYDRONEPHROSIS ON U/S EXAMS: CPT CODE: [id number] CT ABD PELVIS W/O CONT [address] CT ABDOMEN PELVIS WITHOUT CONTRAST HISTORY: MODERATE [...] Signed Report (CONTINUED) FAX: Dilia Becerril MD [phone] [place]: St: REG Name: CELSO COBOS [facility] : 1995 Age/S: 23/M [address] Unit: [id number] Loc: [place], [place]: [place] [id number] Acct: [id number] Dis Date: Status: REG ER PHONE #: [phone] Exam Date: 05/19/2018 1637 FAX #: [phone] Reason: MODERATE BILAT HYDRONEPHROSIS ON U/S EXAMS: CPT CODE: [id number] CT ABD PELVIS W/O CONT 27451 (Continued) IMPRESSION: 1. Mild renal pelviectasis. 2. The urinary bladder wall is mildly thickened however this is accentuated by underdistention. LOCATION: R16 at 1649 Reported and signed by: Stephan Lee M.D. CC: Dilia Becerril MD Technologist: NACHO [place] Dt/Tm: 05/19/2018 (1649) [email or web address] Orig Print D/T: S: 05/19/2018 (4612 PAGE 2 Signed Report - ABDOMEN LTD 2018-05-19 16:09:00 FAX: Dilia Becerril MD [phone] [place]: St: REG Name: CELSO COBOS [facility] : 1995 Age/S: 23/M [address] Unit #: [id number] Loc: [place], [place]: [place] [address] Acct: [id number] Dis Date: Status: REG ER PHONE #: [phone] Exam Date: 05/19/2018 1604 FAX #: [phone] Reason: ELEVATED LFT'S EXAMS: CPT CODE: [id number] ABDOMEN LTD 42480 REASON FOR EXAM: Elevated liver function tests. [...] Signed Report (CONTINUED) FAX: Dilia Becerril MD [phone] [place]: St: REG Name: CHANDRIKACELSO MEHTA [facility] : 1995 Age/S: 23/M [address] [facility] [facility] Unit #: [id number] Loc: [place], [place]: [place] [id number] Acct: [id number] Dis Date: Status: REG ER PHONE #: [phone] Exam Date: 05/19/2018 1604 FAX #: [phone] Reason: ELEVATED LFT'S EXAMS: CPT CODE: [id number] US ABDOMEN LTD 76251 (Continued) at 4078 Reported and signed by: Felix Isaac M.D. CC: Dilia Becerril MD Technologist: SUSIE OLIVERA Trnscrd Date/Time/By: 05/19/2018 (1379) : By: [facility] PAGE 2 Signed Report FAX: Dilia Becerril MD [phone] [place]: St: REG Name: CELSO COBOS [facility] : 1995 Age/S: 23/M [address] [facility] Unit #: [id number] Loc: [place], [place]: [place] [address] Acct: [id number] Dis Date: Status: REG ER PHONE #: [phone] Exam Date: 05/19/2018 1604 FAX #: [phone] Reason: ELEVATED LFT'S EXAMS: CPT CODE: [id number] US ABDOMEN LTD 70527 (Continued) Orig Print D/T: S: 05/19/2018 (5094) PAGE 3 Signed Report Specimen comments: Clean CatchURINALYSIS [id number] 15:28:00* Test Item Value Reference Range Interpretation Comme nts UA COLOR (test code = COLU) UA APPEARANCE (test code = APPU) UA GLUCOSE DIPSTICK (test code = DGLUU) [...] UA LEUKOCYTE ESTERASE DIPSTICK (test code = LEUU) NEGATIVE Jaime/micL NEGATIVE UA WBC (test code = WBCU) WBC/HPF NONE UA RBC (test code = RBCU) RBC/HPF 0-3 UA EPITHELIAL CELLS (test code = EPIU) EPI/HPF 0-3 UA BACTERIA (test code = BACU) NONE Specimen comments: Clean CatchBASIC METABOLIC [id number] 15:23:00* Test Item Value Reference Range Interpretation Comme nts SODIUM (test code = NA) 140 mmol/l 134.0-147.0 N POTASSIUM (test code = K) 4.0 mmol/L 3.6-5.2 N CHLORIDE (test code = CL) 102 mmol/l 98.0-107.0 N CARBON DIOXIDE (test code = CO2) 27.5 mmol/l 21.0-33.0 N ANION GAP (test code = GAP) 14.5 0-20 N GLUCOSE (test code = GLU) 120 mg/dl 70.0-110.0 H BLOOD UREA NITROGEN (test co de = BUN) 13 mg/dl 7.0-18.0 N CREATININE (test code = CREAT) 0.88 mg/dL 0.60-1.30 N GFR NON BLACK (test code = GFRNONBLACK) 113 mL/min 110-120 N GFR BLACK (test code = GFRBLACK) 137 mL/min 133-145 N CALCIUM (test code = CA) 9.1 mg/dl 8.0-10.5 N HEPATIC FUNCTION PANEL [id number] 15:23:00* Test Item Value Reference Range Interpretation Comme nts TOTAL PROTEIN (test code = PROT) 8.1 GM/DL 6.0-8.1 N ALBUMIN (test code = ALB) 4.0 gm/dL 3.2-4.7 N BILIRUBIN TOTAL (test code = BILT) 0.4 mg/dl 0.0-1.0 N BILIRUBIN DIRECT (test code = BILD) 0.1 mg/dl 0.0-0.3 N SGOT/AST (test code = AST) 515 Units/L 15.0-37.0 HH SGPT/ALT (test code = ALT) 266 Units/L 12.0-78.0 H ALKALINE PHOSPHATASE TOTAL ( test code = ALKP) 79 Units/L 50.0-136.0 N [id number] 15:23:00* Test Item Value Reference Range Interpretation Comme nts LIPASE (test code = LIP) 307 Units/L 65.0-230.0 H BASIC METABOLIC [id number] 15:17:00* Test Item Value Reference Range Interpretation Comme nts SODIUM (test code = NA) 140 mmol/l 134.0-147.0 N POTASSIUM (test code = K) 4.0 mmol/L 3.6-5.2 N CHLORIDE (test code = CL) 102 mmol/l 98.0-107.0 N CARBON DIOXIDE (test code = CO2) 27.5 mmol/l 21.0-33.0 N ANION GAP (test code = GAP) 14.5 0-20 N GLUCOSE (test code = GLU) mg/dl 70.0-110.0 BLOOD UREA NITROGEN (test co de = BUN) mg/dl 7.0-18.0 CREATININE (test code = CREAT) mg/dL 0.60-1.30 GFR NON BLACK (test code = GFRNONBLACK) mL/min 110-120 GFR BLACK (test code = GFRBLACK) mL/min 133-145 CALCIUM (test code = CA) mg/dl 8.0-10.5 HEPATIC FUNCTION PANEL [id number] 15:17:00* Test Item Value Reference Range Interpretation Comme nts TOTAL PROTEIN (test code = PROT) gm/dL 6.4-8.2 ALBUMIN (test code = ALB) gm/dl 3.2-4.7 BILIRUBIN TOTAL (test code = BILT) mg/dl 0.0-1.0 BILIRUBIN DIRECT (test code = BILD) mg/dl 0.0-0.3 SGOT/AST (test code = AST) Units/L 15.0-37.0 SGPT/ALT (test code = ALT) Units/L 12.0-78.0 ALKALINE PHOSPHATASE TOTAL ( test code = ALKP) Units/L 50.0-136.0 [id number] 15:17:00* Test Item Value Reference Range Interpretation Comme nts LIPASE (test code = LIP) Units/L 65.0-230.0 CBC W/O [id number] 15:09:00* Test Item Value Reference Range Interpretation Comme nts WHITE BLOOD CELL (test code = WBC) [...] UUG 25.5-32.5 N MEAN CELL HGB CONCETRATION ( test code = MCHC) 34.0 gm/dL 29.0-35.5 N RED CELL DISTRIBUTION WIDTH (test code = RDW) 12.5 % 11.5-15.0 N PLATELET COUNT (test code = PLT) 363 K/mm3 150-400 N MEAN PLATELET VOLUME (test c ode = MPV) 8.3 fl 7.4-10.4 N - XR CHEST 1 [id number] 14:56:00FAX: Dilia Becerril MD [phone] [place]: [address] St: REG Name: CELSO COBOS [facility] : 1995 Age/S: 23/M [address] [facility] Unit #: [id number] Loc: [place], [place]: [place] [address] Acct: [id number] Dis Date: Status: REG ER PHONE #: [phone] Exam Date: 0 05/19/2018 1435 FAX #: [phone] Reason: Abdominal Pain EXAMS: CPT CODE: [id number] XR CHEST 1 V 28328 REASON FOR EXAM: Flu like symptoms. COMPARISON: None. Chest, portable single frontal view. Thelungs are well-inflated and clear. Heart size is normal. No effusion or pneumothorax can be seen. Osseous structures appear to be intact. IMPRESSION: No acute cardiopulmonary disease. Location: [facility] at 6736 Reported and signed by: Felix Isaac M.D. CC: Dilia Becerril MD Technologist: [facility] Date/Time/By: 05/19/2018 (7979) : By: [facility] PAGE 1 Signed Report FAX: Dilia Becerril MD [phone] [place] : St: REG -- Name: CELSO COBOS [facility] : 1995 Age/S: 23/M [address] Unit #: [id number] Loc: [place], [place]: [place] [address] Acct: [id number] Dis Date: Status: REG ER PHONE #: [phone] Exam Date: 05/19/2018 1435 FAX #: [phone] Reason: Abdominal Pain EXAMS: CPT CODE: [id number] XR CHEST 1 V 06786 (Continued) Orig Print D/T: S: 05/19/2018 (7706) PAGE 2 Signed Report Notes Date/Time Note Provider Source 2018-05-19 14:32:00 [facility] EMERGENCY PROVIDER REPORT REPORT#:[id number] REPORT STATUS: Signed DATE:05/19/18 TIME: 1432 PATIENT: CELSO COBOS UNIT #: [id number] ROOM/BED: AGE: 23 SEX: M PCP PHYS: No Primary or Family Physician SERVICE AUTHOR: Dilia Becerril MD * ALL edits or amendments must be made on the electronic/computer document * TZR-Ezn-Uels Illness General Confirmed Patient Yes Initial Greet Date/Time 05/19/18 1426 PCP PCP in [place] Presentation Chief Complaint Cough, Nasal congestion Hx Obtained From Patient Onset Occurred Days ago Symptom Duration Since onset Progression since Onset Unchanged Severity: Onset Mild Severity: Current Mild Associated with Reports: Rhinorrhea, Vomiting (post-tussive). Denies: Fever. Associated Other Pt denies other symptoms Exacerbated by Nothing Relieved by Nothing Free Text HPI Notes Free Text HPI Notes 23 y/o male presents to the ED c/o flu like symptoms including productive cough with yellow/green phlegm, nasal congestion, rhinorrhea, and sneezing for the past 2 days. Pt reports associated sx of post-tussive emesis. Pt states he is currently residing at [facility] for marijuana abuse and was given Mucinex and Dayquil by staff for sx. Pt reports no relief s/p medications, so he sought help in the ED. Denies fever, diarrhea or any other acute symptoms. Pt reports drug allergy to PCN and states he develops swelling if taken. Portions of this section were scribed by Minerva Osorio on 05/19/18 at 1603 Review of Systems ROS Statements All systems rev neg except as marked. Focused Review of Systems Constitutional Denies: Chills, Fever, Lethargy. Eyes Denies: Eye pain bilat, Redness bilat, Visual loss bilat. Ears/Nose/Throat Reports: Nasal congestion. Denies: Earache bilat, Sore throat. Respiratory Reports: Cough, productive. Denies: Hemoptysis, Shortness of breath, Wheezing. Cardiovascular Denies: Chest pain, Syncope. GI Reports: Vomiting (post-tussive). Denies: Abdominal pain, Bloody/tarry stool, Diarrhea, Hematemesis, Hematochezia, Melena, Nausea. Musculoskeletal Denies: Back pain, Extremity pain. Hematologic Denies: Bleeding, Bruising. Skin Denies: Diaphoresis, Rash. Neurologic Denies: Change LOC, Dizziness, Focal weakness, Headache, Numbness, Slurred speech. Additional Review of Systems Allergy/Immun Reports: Rhinorrhea, Sneezing. Portions of this section were scribed by Minerva Osorio on 05/19/18 at 1436 Past Medical History - Adult Stated Complaint FLS Allergies Coded Allergies: Penicillins (Intermediate, HIVES 05/19/18) Review of Nursing Notes Rev avail, and agree Pt reports no significant: Past medical history, Past surgical history Drug Use Marijuana, In Recovery Smoking status for patients 13 years old or older: Current every day smoker Other Social History Lives in facility ([facility] as of 05/19) Portions of this section were scribed by Minerva Osorio on 05/19/18 at 1436 Physical Exam Vital Signs Vital Signs First Documented: Result Date Time Pulse Ox 98 05/19 1423 B/P 137/74 05/19 1423 B/P Mean 95 05/19 1423 O2 Delivery Room air 05/19 1422 Temp 36.5 05/19 142 Pulse 104 05/19 1423 Resp 18 05/19 1423 Last Documented: Result Date Time Pulse Ox 99 05/19 171 B/P 132/78 05/19 1718 B/P Mean 96 05/19 171 O2 Delivery Room air 05/19 1718 Temp 36.9 05/19 171 Pulse 84 05/19 171 Resp 18 05/19 1718 Review of Vital Signs Reviewed Focused PE General/Const General/Const Awake, Alert, No acute distress, Well developed, Well nourished , Cooperative, Not toxic appearing Eyes Eyes PERRL, EOMI, Conjunctiva NL Ears/Nose/Throat Ears/Nose/Throat Airway patent, Mucous membranes moist, Pharynx NL Text/Dict Notes + Mucosal edema MS Neck Neck Supple, No meningismus, Full range of motion, No adenopathy, No swelling , Non-tender Resp/Chest Respiratory/Chest Breath sounds NL, Breath sounds = bilat, No respiratory distress, No rales, No rhonchi, No wheezing Cardiovascular Cardiovascular Heart rate NL, Regular rhythm, Heart sounds NL Abdomen/GI Abdomen/GI Soft, Non-tender, McBurney's non-tender, No guarding, No rebound, BS normoactive, No distention, No palpable mass, No pulsatile mass Lymphatic Lymphatic No gross adenopathy, No cervical adenopathy Skin Skin Color NL, No rash, Warm, Dry, Intact, No swelling Neurologic Neurologic Oriented X3, Speech NL, No motor deficits, No sensory deficits, CN II - XII intact Additional PE MS Head Head Atraumatic, Normocephalic Portions of this section were scribed by Minerva Osorio on 05/19/18 at 1603 Interpretation Diagnostics Lab Results Interpretation Results Laboratory Tests 05/19/18 1451: [Embedded Image Not Available] Laboratory Tests: 05/19 05/19 1510 1451 Chemistry Sodium (134.0 - 147.0 mmol/l) 140 Potassium (3.6 - 5.2 mmol/L) 4.0 Chloride (98.0 - 107.0 mmol/l) 102 Carbon Dioxide (21.0 - 33.0 mmol/l) 27.5 Anion Gap (0 - 20) 14.5 BUN (7.0 - 18.0 mg/dl) 13 Creatinine (0.60 - 1.30 mg/dL) 0.88 Est GFR ( Amer) (133 - 145 mL/min) 137 Est GFR (Non-Af Amer) (110 - 120 mL/min) 113 Glucose (70.0 - 110.0 mg/dl) 120 H Calcium (8.0 - 10.5 mg/dl) 9.1 Total Bilirubin (0.0 - 1.0 mg/dl) 0.4 Direct Bilirubin (0.0 - 0.3 mg/dl) 0.1 AST (15.0 - 37.0 Units/L) 515 *H ALT (12.0 - 78.0 Units/L) 266 H Total Alk Phosphatase (50.0 - 136.0 Units/L) 79 Total Protein (6.0 - 8.1 GM/DL) 8.1 Albumin (3.2 - 4.7 gm/dL) 4.0 Lipase (65.0 - 230.0 Units/L) 307 H Hematology WBC (4.5 - 11.0 K/mm3) 10.4 RBC (4.40 - 5.90 M/mm3) 4.86 Hgb (13.0 - 17.0 gm/dL) 14.8 Hct (36.0 - 48.0 %) 43.5 MCV (80.0 - 94.0 UM3) 89.5 MCH (25.5 - 32.5 UUG) 30.5 MCHC (29.0 - 35.5 gm/dL) 34.0 RDW (11.5 - 15.0 %) 12.5 Plt Count (150 - 400 K/mm3) 363 MPV (7.4 - 10.4 fl) 8.3 Urines Urine Color YELLOW Urine Appearance CLEAR Urine pH (5.0 - 9.0) 6.0 Ur Specific [place] (1.000 - 1.030) 1.020 Urine Protein (NEGATIVE mg/dl) 30 Urine Glucose (UA) (NORMAL mg/dl) NORMAL Urine Ketones (NEGATIVE mg/dl) NEGATIVE Urine Blood (NEGATIVE Marvel/micL) 25 Marvel/micL H Urine Nitrite (NEGATIVE) NEGATIVE Urine Bilirubin (NEGATIVE mg/dL) NEGATIVE Urine Urobilinogen (NORMAL mg/dl) NORMAL Ur Leukocyte Esterase (NEGATIVE Jaime/micL) NEGATIVE Urine RBC (0 - 3 RBC/HPF) 1-3 Urine WBC (NONE WBC/HPF) 0-2 Ur Epithelial Cells (0 - 3 EPI/HPF) 0-3 Urine Bacteria (NONE) TRACE Microbiology: Date/Time Procedure - Status Source Growth 05/19 1451 Group A Strep Rapid Antigen - RES THROAT 05/19 1451 Streptococcus Culture - RES THROAT 05/19 1451 Influenza Virus Type B Antigen - COMP NASOPHARG 05/19 1451 Influenza Virus Type A Antigen - COMP NASOPHARG Recent Impressions: RADIOLOGY - XR CHEST 1 V 05/19 1425 Report Impression - Status: SIGNED Entered: 05/19/2018 1459 IMPRESSION: No acute cardiopulmonary disease. Location: U19 Impression By: Amair[facility] - Felix Isaac M.D. ULTRASOUND - US ABDOMEN LTD 05/19 1546 Report Impression - Status: SIGNED Entered: 05/19/2018 1612 IMPRESSION: Central fluid and caliectasis in the left kidney suggests hydronephrosis. Borderline central fluid in the right kidney versus extrarenal pelvis. Correlate for renal function. Bladder intact. Contracted, thickened gallbladder without gallstones. No ascites found. Fatty liver changes. Location: U19 Impression By: [facility] - Felix Isaac M.D. CAT SCAN - CT ABD PELVIS W/O CONT 05/19 1637 Report Impression - Status: SIGNED Entered: 05/19/2018 1652 IMPRESSION: 1. Mild renal pelviectasis. 2. The urinary bladder wall is mildly thickened however this is accentuated by underdistention. LOCATION: R16 Impression By: TierneyLico - Stephan Lee M.D. Lab Imaging Statement Laboratory radiographic studies reviewed and considered in the medical decision-making. Point of Care Testing Micro Interpretation Influenza rapid - neg, Strep rapid - neg, Strep and influenza rapid reviewed Urinalysis Interpretation UA reviewed Radiography X-Ray Chest View 1 view Text/Dict Note IMPRESSION: No acute cardiopulmonary disease. Interpretation/Wet Read by Interpret - Radiologist Reviewed by ED physician Free Text I D Notes Free Text I D Notes US Abdomen LTD Performed by: US Tech Interpreted by: Radiologist Reviewed by: ED Physician Portions of this section were scribed by Minerva Osorio on 05/19/18 at 1603 Re-Evaluation MDM Re-Evaluation/Progress Re-Evaluation/Progress 1 Text/Dict Note Pt counseled regarding his elevated LFT's. Pt denies hx of ETOH abuse or hepatitis. U/S of g.b. ordered. Time of Re-Eval 1534 Re-Eval Status Improved Re-Evaluation/Progress 2 Text/Dict Note Pt informed of abn labs, hydronephrosis on U/S, and advised to f/u with specialists. Time of Re-Eval 1657 Re-Eval Status Improved ED Course Medication(s) Ordered Medication(s) Ordered: Electrolytic, Caloric, And Kiarra Sig/Sherman Start time Last Medication Dose Route Stop Time Status Admin Sodium Chloride 1,000 ML X1ED 05/19 1430 DCD 05/19 IV 06/18 1429 1509 Portions of this section were scribed by Minerva Osorio on 05/19/18 at 1528 Patient Discharge Departure Vital Signs/Condition Vital Signs First Documented: Result Date Time Pulse Ox 98 05/19 1423 B/P 137/74 05/19 142 B/P Mean 95 05/19 1423 O2 Delivery Room air 05/19 1422 Temp 36.5 05/19 142 Pulse 104 05/19 1423 Resp 18 05/19 1422 Last Documented: Result Date Time Pulse Ox 99 05/19 1718 B/P 132/78 05/19 1718 B/P Mean 96 05/19 1718 O2 Delivery Room air 05/19 1718 Temp 36.9 05/19 1718 Pulse 84 05/19 1718 Resp 18 05/19 1718 All vital signs available at the time of this entry have been reviewed. Condition Stable Clinical Impression Clinical Impression Primary Impression: Upper respiratory infection Secondary Impressions: Elevated LFTs, Hydronephrosis, Post-tussive emesis Disposition Decision Discharge )( Discharged to Home Yes )( Time 1655 )( Date 05/19/18 Discharge/Care Plan Counseled Regarding Diagnosis, Lab results, Imaging studies, Prescriptions, Need for follow-up, Smoking cessation, When to return to ED Prescriptions CLARITIN-D, DELSYM COUGH SYRUP, ZOFRAN Prescriptions Reviewed Risks, Benefits Discharge Note I have spoken with the patient and/or caregivers. I have explained the patient's condition, diagnoses and treatment plan based on the information available to me at this time. I have answered the patient's and/or caregiver's questions and addressed any concerns. The patient and/or caregivers have as good an understanding of the patient's diagnosis, condition and treatment plan as can be expected at this point. The vital signs have been stable. The patient's condition is stable and appropriate for discharge from the emergency department. The patient will pursue further outpatient evaluation with the primary care physician or other designated or consulting physician as outlined in the discharge instructions. The patient and/or caregivers are agreeable to this plan of care and follow-up instructions have been explained in detail. The patient and/or caregivers have received these instructions in written format and have expressed an understanding of the discharge instructions. The patient and/or caregivers are aware that any significant change in condition or worsening of symptoms should prompt an immediate return to this or the closest emergency department or a call to 911. Quality Measures Pharyngitis Testing Group A Strep test doc Smoking Cessation Screened, tobacco user, Tobacco cess intervention Tobacco Screening/Cessation 18 years or older, Tobacco user, Smoking cessation offered, Counseled 3-10 minutes Supervising Physician Note Scribe Statement Minerva Osorio, 05/19/18 1436, scribing for and in the presence of Dr. Becerril. Signed By: Minerva Osorio, 05/19/18 1436 Provider Scribed Statement I personally performed the services described in this documentation and reviewed the documentation that was dictated to the scribe(s) in my presence, and it accurately records my words and actions. Dilia Becerril, 05/19/18 Portions of this section were scribed by Minerva Osorio on 05/19/18 at 1528 at 1500 RPT #:[id number] END OF REPORT [facility]
--- NOTE | 2024-03-08 14:33 | EDPHYS ---
Physician Documentation [facility] Name: Steve Cintron Age: 28 yrs Sex: Male : 1995 Arrival Date: 03/08/2024 Time: 14:09 Bed 11 Private MD: ED Physician Yosef Anne HPI: 03/08 14:25 This 28 yrs old Male presents to ER via Ambulatory with complaints of Hand sp3 Infection. 14:25 28-year-old male with no past medical history presents with bilateral fingertip sp3 erythema and purulent blisters. Patient states he had a small laceration superficial cut on his left index finger and states that they have spread to the other fingers. Multiple dry skin areas of skin flaking also noted. Again all on the tips. He denies any palm pain, pain to passive flexion or extension, fusiform swelling, joint aches, fever, streaking, lymphadenopathy, or any other signs of infection at this time. On review of systems patient denies fever, headache, neck pain, chest pain, shortness breath, abdominal pain, vomiting, diarrhea, swimming and any potential infested water, beach access, any other environmental exposure, or any other signs or symptoms on ROS at this time.. Historical: - Allergies: 14:17 PENICILLINS; ll1 - PMHx: 14:17 None; ll1 - PSHx: 14:17 None; ll1 - Immunization history:: Adult Immunizations up to date. - Infectious Disease History:: Denies. - Social history:: Smoking status: Reported history of juuling and/or vaping. ROS: 14:26 Constitutional: Negative for fever, chills, and weight loss, Eyes: Negative for injury, sp3 pain, redness, and discharge, Neck: Negative for injury, pain, and swelling, Cardiovascular: Negative for chest pain, palpitations, and edema, Respiratory: Negative for shortness of breath, cough, wheezing, and pleuritic chest pain, Abdomen/GI: Negative for abdominal pain, nausea, vomiting, diarrhea, and constipation, Back: Negative for injury and pain, Neuro: Negative for headache, weakness, numbness, tingling, and seizure, Psych: Negative for depression, anxiety, suicide ideation, homicidal ideation, and hallucinations, Allergy/Immunology: Negative for hives, rash, and allergies, Endocrine: Negative for neck swelling, polydipsia, polyuria, polyphagia, and marked weight changes, Hematologic/Lymphatic: Negative for swollen nodes, abnormal bleeding, and unusual bruising, 14:26 All other systems are negative, Exam: 14:26 Constitutional: This is a well developed, well nourished patient who is awake, alert, sp3 and in no acute distress. Head/Face: Normocephalic, atraumatic. Eyes: Pupils equal round and reactive to light, extra-ocular motions intact. Lids and lashes normal. Conjunctiva and sclera are non-icteric and not injected. Cornea within normal limits. Periorbital areas with no swelling, redness, or edema. ENT: Nares patent. No nasal discharge, no septal abnormalities noted. External auditory canals are clear. Oropharynx with no redness, swelling, or masses, exudates, or evidence of obstruction, uvula midline. Mucous membranes moist. Neck: Trachea midline, no thyromegaly or masses palpated, and no cervical lymphadenopathy. Supple, full range of motion without nuchal rigidity, or vertebral point tenderness. No Meningismus. Chest/axilla: Normal chest wall appearance and motion. Nontender with no deformity. No lesions are appreciated. Cardiovascular: Regular rate and rhythm with a normal S1 and S2. No gallops, murmurs, or rubs. Normal PMI, no JVD. No pulse deficits. Respiratory: Lungs have equal breath sounds bilaterally, clear to auscultation and percussion. No rales, rhonchi or wheezes noted. No increased work of breathing, no retractions or nasal flaring. Neuro: Awake and alert, GCS 15, oriented to person, place, time, and situation. Cranial nerves II-XII grossly intact. Motor strength 5/5 in all extremities. Sensory grossly intact. Cerebellar exam normal. Normal gait. Psych: Awake, alert, with orientation to person, place and time. Behavior, mood, and affect are within normal limits. 14:26 Musculoskeletal/extremity: Bilateral hand fingertip erythema mild swelling and dry skin with infected blisters noted.. Vital Signs: 14:17 BP 167 / 101; Pulse 84; Resp 16; Temp 97; Pulse Ox 100% ; Weight 90.72 kg; Height 5 ft. ll1 10 in. ; Pain 10/10; 14:32 BP 145 / 80; Pulse 70; Resp 17; Pulse Ox 99% on R/A; rs5 14:17 Body Mass Index 28.70 (90.72 kg, 177.8 cm) ll1 14:17 Pain Scale: Adult ll1 MDM: 14:17 Medical Screening Exam initiated sp3 14:31 Data reviewed: vital signs, nurses notes. ED course: Cellulitis with staph probable. sp3 Clinically not suspicious for deep tissue infection, osteomyelitis, tenosynovitis or other pathology. Will treat with antibiotics topical and oral. Follow-up PCP as needed.. Administered Medications: No medications were administered Disposition Summary: 03/08/24 14:32 Discharge Ordered Notes: Location: Home sp3 Condition: Stable sp3 Diagnosis - Wound infection, cellulitis bilateral hands sp3 Followup: sp3 - With: Private Physician - When: Upon discharge from the Emergency Department - Reason: Continuance of care Discharge Instructions: - Discharge Summary Sheet ll1 - Wound Infection sp3 Forms: - Work release form ll1 - Medication Reconciliation Form sp3 - Antibiotic Education sp3 - Prescription Opioid Use sp3 - Patient Portal Instructions sp3 - Leadership Thank You Letter sp3 Prescriptions: - mupirocin calcium 2 % Topical cream - apply 1 application TOPICAL route 3 times per day; 1 Each; Refills: 0, Product sp3 Selection Permitted - Clindamycin HCl 300 mg Oral Capsule - take 1 capsule ORAL route every 6 hours for 10 days; 40 capsule; Refills: 0, sp3 Product Selection Permitted - Bactrim DS 800-160 mg Oral Tablet - take 1 tablet ORAL route every 12 hours for 10 days; 20 tablet; Refills: 0, sp3 Product Selection Permitted Signatures: Sami Deras RN RN ll1 Yosef Anne MD MD sp3 Osman Lara RN RN rs5
--- NOTE | 2024-03-08 14:33 | ER ---
Nurse's Notes [facility] Name: Steve Cintron Age: 28 yrs Sex: Male : 1995 Arrival Date: 03/08/2024 Time: 14:09 Bed 11 Private MD: Diagnosis: Wound infection, cellulitis bilateral hands Presentation: 03/08 14:17 Chief complaint: Patient states: Got a small cut to tip of L hand 2nd digit 5 days ago. ll1 Rash, pain has spread to all fingertips of both hands since. Coronavirus screen: Client denies travel out of the [place] in the last 14 days. At this time, the client does not indicate any symptoms associated with coronavirus-19. Ebola Screen: Patient denies travel to an Ebola-affected area in the 21 days before illness onset. Initial Sepsis Screen: Does the patient meet any 2 criteria? No. Patient's initial sepsis screen is negative. Does the patient have a suspected source of infection? No. Patient's initial sepsis screen is negative. Risk Assessment: Do you want to hurt yourself or someone else? Patient reports no desire to harm self or others. Onset of symptoms was March 03, 2024. 14:17 Method Of Arrival: Ambulatory ll1 14:17 Acuity: JEREMI 4 ll1 Triage Assessment: 14:17 General: Appears uncomfortable, Behavior is calm, cooperative, appropriate for age. ll1 Pain: Complains of pain in right hand and left hand Pain currently is 10 out of 10 on a pain scale. Quality of pain is described as aching, throbbing. Derm: Reports peeling, all fingertips red, swollen, irritated painful. Historical: - Allergies: 14:17 PENICILLINS; ll1 - PMHx: 14:17 None; ll1 - PSHx: 14:17 None; ll1 - Immunization history:: Adult Immunizations up to date. - Infectious Disease History:: Denies. - Social history:: Smoking status: Reported history of juuling and/or vaping. Screenin:20 [facility] ED Fall Risk Assessment (Adult) History of falling in the last 3 months, rs5 including since admission No falls in past 3 months (0 pts) Confusion or Disorientation No (0 pts) Intoxicated or Sedated No (0 pts) Impaired Gait No (0 pts) Mobility Assist Device Used No (0 pt) Altered Elimination No (0 pt) Score/Fall Risk Level 0 - 2 = Low Risk Oriented to surroundings, Maintained a safe environment. Abuse screen: Denies threats or abuse. Nutritional screening: No deficits noted. Tuberculosis screening: No symptoms or risk factors identified. Assessment: 14:16 General: Appears in no apparent distress. uncomfortable, Behavior is calm, cooperative. rs5 Pain: Denies pain. Neuro: Level of Consciousness is awake, alert, obeys commands, Oriented to person, place, time, situation. Cardiovascular: Patient's skin is warm and dry. Respiratory: Airway is patent Respiratory effort is even, unlabored, Respiratory pattern is regular, symmetrical. GI: Abdomen is round non-distended, Abd is soft and non tender X 4 quads. : No signs and/or symptoms were reported regarding the genitourinary system. EENT: No signs and/or symptoms were reported regarding the EENT system. Derm: Skin is intact, Skin is pink, warm \T\ dry. small wounds noted on fingertips of hands bilat, appears red, dry. Musculoskeletal: Range of motion: intact in all extremities. 14:40 Reassessment: Patient and/or family updated on plan of care and expected duration. Pain rs5 level reassessed. Patient is alert, oriented x 3, equal unlabored respirations, skin warm/dry/pink. Vital Signs: 14:17 BP 167 / 101; Pulse 84; Resp 16; Temp 97; Pulse Ox 100% ; Weight 90.72 kg; Height 5 ft. ll1 10 in. ; Pain 10/10; 14:32 BP 145 / 80; Pulse 70; Resp 17; Pulse Ox 99% on R/A; rs5 14:17 Body Mass Index 28.70 (90.72 kg, 177.8 cm) ll1 14:17 Pain Scale: Adult ll1 ED Course: 14:11 Patient arrived in ED. mr 14:12 Yosef Anne MD is Attending Physician. sp3 14:17 Arm band placed on. ll1 14:18 Triage completed. ll1 14:20 Patient has correct armband on for positive identification. Placed in gown. Bed in low rs5 position. Call light in reach. Side rails up X2. 14:20 No provider procedures requiring assistance completed. Patient did not have IV access rs5 during this emergency room visit. 14:35 Osman Lara, RN is Primary Nurse. rs5 Administered Medications: No medications were administered Medication: 14:40 VIS not applicable for this client. rs5 Outcome: 14:32 Discharge ordered by . sp3 14:50 Discharged to home ambulatory, rs5 14:50 Condition: stable rs5 14:50 Discharge instructions given to patient, family, Instructed on discharge instructions, follow up and referral plans. Demonstrated understanding of instructions, follow-up care, 14:56 Patient left the ED. rs5 Signatures: Sophie Guerrero, Reg Reg mr DerasSami, RN RN ll1 Yosef Anne MD MD sp3 Osman Lara, JESSICA RN rs5 Corrections: (The following items were deleted from the chart) 14:58 14:16 Derm: Skin is intact, Skin is pink, warm \T\ dry. rs5 rs5
[2024-03-08 15:02] VITALS: BP 167/101; TEMP 97; O2SAT 100
== END 2024-03-08 14:56 | disposition home or self-care (01) ==
LOC: ER 14:09
DX: L03.114 Cellulitis of left upper limb (principal); L03.113 Cellulitis of right upper limb